=== PATIENT | female | born 1970 | race Two or more races ===

== ENCOUNTER → 2020-06-29 | Outpatient (CLI) | payer BC ==
[~2020-06-29] MED LIST: ASCO100018 PO; CINN500C2 PO; Chondroitin PO; FEXO1TAB29 PO; GLUC15006 PO; METH500C3 PO; TURM500C4 PO; ZINC50TA44 PO; [UNRECOGNIZED DRUG - OTHER] PO
[2020-06-29 11:30] LABS: BASOPHILS % (AUTO) 0 % (0-1); EOSINOPHILS % (AUTO) 3 % (1-7); LYMPHOCYTES % (AUTO) 27 % (22-44); MEAN CORPUSCULAR HEMOGLOBIN 29.6 pg (27.0-34.8); MEAN CORPUSCULAR HGB CONC 32.8 g/dL (32.4-35.8); MEAN PLATELET VOLUME 8.1 fL (7.4-10.4); MONOCYTES % (AUTO) 6 % (2-9); NEUTROPHILS % (AUTO) 63 % (42-75); PLATELET COUNT 298 x10^3/uL (130-400); RED BLOOD COUNT 4.63 x10^6/uL (3.82-5.3); RED CELL DISTRIBUTION WIDTH 14.6 % (9.6-15.2)
[2020-06-29 11:32] LABS: MD NO
[2020-06-29 11:43] LABS: ALBUMIN 3.4 g/dL (3.4-5.0); ANION GAP 6 mmol/L (5-15); CALCIUM 8.7 mg/dL (8.5-10.1); CHLORIDE 106 mmol/L (98-107)
[2020-06-29 11:48] LABS: MICROSCOPIC NOT IND
[2020-06-29 11:50] LABS: ALANINE AMINOTRANSFERASE 24 U/L (12-78); ALKALINE PHOSPHATASE 64 U/L (45-117); BILIRUBIN,TOTAL 0.9 mg/dL (0.2-1.0); CREATININE 0.62 mg/dL (0.55-1.02); TOTAL PROTEIN 7.9 g/dL (6.4-8.2)
== END | disposition home or self-care (01) ==
LOC: STAR 09:59
PROVIDERS: ATTEND Obstetrics & Gynecology
DX: Z01.818 Encounter for other preprocedural examination (principal); D25.9 Leiomyoma of uterus, unspecified; Z20.822 Contact with and (suspected) exposure to COVID-19
CPT/HCPCS: 36415; 71046; 80053; 81003; 84702; 85025; 93005; U0003

== ENCOUNTER 2020-07-03 09:49 | Inpatient (IN) | payer BC ==
[~2020-07-03] VITALS: Ht 167.6 cm; Wt 86.7 kg
[2020-07-03 10:44] VITALS: BP 117/82
[2020-07-03 10:45] LABS: HCG UR SG 1.019 (1.003-1.030)
[2020-07-03] MEDS ORDERED: CHLORHEXIDINE 15 ML UDC ONE (10:49)
[2020-07-03] MEDS ORDERED: CHLORHEXIDINE 15 ML UDC PO ONE (11:00)
[2020-07-03] MEDS ORDERED: BUPIVACAINE/PF 0.5% ONE (11:12)
[2020-07-03] MEDS ORDERED: MIDAZOLAM 1 MG/ML, 2ML ONE (11:44)
[2020-07-03] MEDS ORDERED: FENTANYL PF 250 MCG/5ML ONE ×2 (11:44→12:26)
[2020-07-03] MEDS ORDERED: LACTATED RINGERS 1,000 ML IV SCH (12:00)
[2020-07-03] MEDS ORDERED: SCOPOLAMINE 1MG PATCH TD ONE (12:08)
[2020-07-03] MEDS ORDERED: PROPOFOL 50 ML ONE ×2 (12:23→12:52)
[2020-07-03] MEDS ORDERED: CEFAZOLIN 1,000 MG ONE (12:25)
[2020-07-03] MEDS ORDERED: ROCURONIUM 10MG/ML,5ML ONE (12:25)
[2020-07-03] MEDS ORDERED: PROPOFOL 10 MG/ML, 20ML ONE (12:25)
[2020-07-03] MEDS ORDERED: GLYCOPYRROLATE 0.2MG/1ML, 5ML ONE (12:25)
[2020-07-03] MEDS ORDERED: ONDANSETRON 2MG/ML, 2ML ONE (12:25)
[2020-07-03] MEDS ORDERED: NEOSTIGMINE 1 MG/ML, 10ML ONE (12:25)
[2020-07-03] MEDS ORDERED: SUCCINYLCHOLINE 20 MG/ML, 10ML ONE (12:25)
[2020-07-03] MEDS ORDERED: METHOCARBAMOL 1,000 MG in DEXTROSE 5% 100 ML IV PRN (13:00)
[2020-07-03] MEDS ORDERED: LABETALOL 5MG/ML, 20ML IV PRN (13:00)
[2020-07-03] MEDS ORDERED: OXYcodone 5 MG/5 ML ORAL.SOL UDC PO PRN (13:00)
[2020-07-03] MEDS ORDERED: PROMETHAZINE 25 MG/ML, 1ML IVPush PRN (13:00)
[2020-07-03] MEDS ORDERED: EPHEDRINE 50 MG/ML, 1ML IVPush PRN (13:00)
[2020-07-03] MEDS ORDERED: ACETAMINOPHEN 325 MG TABLET PO PRN (13:00)
[2020-07-03] MEDS ORDERED: MEPERIDINE/PF 25MG/0.5ML IVPush PRN (13:00)
[2020-07-03] MEDS ORDERED: ONDANSETRON 2MG/ML, 2ML IVPush PRN ×2 (13:00→14:30)
[2020-07-03] MEDS ORDERED: hydrALAzine 20 MG/ML, 1ML IV PRN (13:00)
[2020-07-03] MEDS ORDERED: LORazepam 2 MG/ML, 1ML IVPush PRN (13:00)
[2020-07-03] MEDS ORDERED: HYDROmorphone 1 MG/ML, 1ML INJ IVPush PRN (13:00)
[2020-07-03] MEDS ORDERED: VASOPRESSIN 20 UNIT/ML, 1ML ONE (13:18)
[2020-07-03] MEDS ORDERED: PROMETHAZINE 25 MG/ML, 1ML ONE (14:33)
[2020-07-03] MEDS ORDERED: FENTANYL PF 100 MCG/2ML ONE (14:34)
[2020-07-03] MEDS: FENTANYL PF 100 MCG/2ML IV PRN ×3 (14:45→15:18)
[2020-07-03] MEDS ORDERED: ACETAMINOPHEN 650 MG/20.3 ML UDC ONE (15:15)
[2020-07-03] MEDS ORDERED: OXYcodone 5 MG/5 ML ORAL.SOL UDC ONE (15:15)
[2020-07-03] MEDS: SIMETHICONE 80 MG CHEW TAB PO SCH ×2 (16:00→20:13)
[2020-07-03] MEDS: KETOROLAC 30 MG/1 ML IVPush PRN (16:17)
[2020-07-03] MEDS: LACTATED RINGERS 1,000 ML IV SCH ×2 (16:18→23:55)
[2020-07-03] MEDS: morphine SULFATE 10 MG/ML, 1ML IVPush PRN (17:49)
[2020-07-03 18:47] VITALS: BP 109/73
[2020-07-04 00:57] VITALS: BP 116/79
[2020-07-04] MEDS: morphine SULFATE 10 MG/ML, 1ML IVPush PRN ×3 (02:49→08:11)
[2020-07-04] MEDS: KETOROLAC 30 MG/1 ML IVPush PRN ×2 (04:34→20:38)
[2020-07-04] MEDS: LACTATED RINGERS 1,000 ML IV SCH (07:35)
[2020-07-04 07:40] VITALS: BP 116/70
[2020-07-04] MEDS: SIMETHICONE 80 MG CHEW TAB PO SCH ×3 (08:11→20:37)
[2020-07-04] MEDS: OXYcodone/APAP 5/325MG TABLET PO PRN ×2 (13:26→17:28)
[2020-07-04 14:11] VITALS: BP 101/60
[2020-07-04 19:41] VITALS: BP 104/63
[2020-07-04] MEDS: DIPHENHYDRAMINE 25 MG CAPSULE PO PRN (20:37)
[2020-07-05 01:07] VITALS: BP 105/67
[2020-07-05] MEDS: OXYcodone/APAP 5/325MG TABLET PO PRN ×2 (02:21→07:59)
[2020-07-05] MEDS: DIPHENHYDRAMINE 25 MG CAPSULE PO PRN (06:35)
[2020-07-05 07:12] VITALS: BP 102/65
[2020-07-05] MEDS: SIMETHICONE 80 MG CHEW TAB PO SCH (07:58)
[2020-07-05] MEDS ORDERED: IBUP-1222 PO (08:24)
[2020-07-05] MEDS ORDERED: OXYC1TAB14 PO (08:24)
== END 2020-07-05 10:58 | disposition home or self-care (01) | DRG 743 ==
LOC: ORIP 09:49 → EDSTATUS 12:00 → 4NW 15:49 → 4NE 07-04 19:19 → DCLOUNGE 07-05 10:53
PROVIDERS: ADMIT Obstetrics & Gynecology; ATTEND Obstetrics & Gynecology
PROC: 0UT90ZZ Resection of Uterus, Open Approach (ICD-10-PCS; 2020-07-03)
PROC: 0UT20ZZ Resection of Bilateral Ovaries, Open Approach (ICD-10-PCS; principal; 2020-07-03 12:00)
PROC: 0UT70ZZ Resection of Bilateral Fallopian Tubes, Open Approach (ICD-10-PCS; 2020-07-03 12:00)
DX: D25.9 Leiomyoma of uterus, unspecified (principal); J45.909 Unspecified asthma, uncomplicated; Z88.8 Allergy status to other drugs, medicaments and biological substances
CPT/HCPCS: 36415; S0020; 81025; 85014; 85018; 86850; 86900; 86923; 88307; 88311; C1729; G0378; J0690; J1885; J2250; J2405; J2550; J2704; J2710; J3010; C1765; J0330; J2270; J2800; J7120; Q0163